=== PATIENT | male | born 1990 | race African-American/Black ===

== ENCOUNTER 2018-11-23 08:53 | Emergency (ER) | payer SELFPAY ==
[~2018-11-23] VITALS: Ht 167.6 cm; Wt 80.7 kg
[2018-11-23 09:10] VITALS: BP 121/69
--- NOTE | 2018-11-23 11:15 | RAD ---
Left hand, 3 views, 11/23/2018: HISTORY: Nail gun injury No fracture or dislocation is identified. No radiopaque foreign body is evident in the soft tissues. IMPRESSION: No significant bony abnormality is detected. Electronically signed by: Michael Robertson MD (11/23/2018 11:13 AM) [facility]
[2018-11-23] MEDS ORDERED: CEPH-264 PO (11:30)
--- NOTE | 2018-11-23 11:31 | PHYS DOC ---
Past Medical History Past Medical History: GERD (AKIRA RITTERJOSE MIGUEL Martinez APRN) Past Surgical History: No Surgical History (AKIRA RITTERJOSE MIGUEL Martinez APRN) Alcohol Use: Occasionally Drug Use: Marijuana (FITO RITTER Michelle BONILLA) Adult General Chief Complaint Chief Complaint: HAND PROBLEM [facility] HPI Patient is a 28 year old male who presents with a puncture wound to his left hand from a nail gun. The patient states that the nail was brand-new and had no contamination of paint or solvent. The patient states that this occurred last night. He states that it did not penetrate for into his hand but when he woke up today he noticed that there was redness around the site. He was worried that it might be getting infected. He states that he is up-to-date on his tetanus boosters. (FITO RITTER IRENE) Review of Systems Review of Systems Constitutional: Denies fever or chills [] Respiratory: Denies cough or shortness of breath [] Cardiovascular: No additional information not addressed in HPI [] GI: Denies abdominal pain, nausea, vomiting, bloody stools or diarrhea [] : Denies dysuria or hematuria [] Musculoskeletal: Denies back pain or joint pain [] Integument: See history of present illness Neurologic: Denies headache, focal weakness or sensory changes [] Endocrine: Denies polyuria or polydipsia [] All other systems were reviewed and found to be within normal limits, except as documented in this note. (FITO RITTER Michelle BONILLA) Allergies Allergies Allergies Coded Allergies Type Severity Reaction Last Updated Verified No Known Drug Allergies 11/23/18 No (KIKO MOORE MD) Physical Exam Physical Exam Constitutional: Well developed, well nourished, no acute distress, non-toxic appearance. [] Cardiovascular:Heart rate regular rhythm, no murmur [] Lungs & Thorax: Bilateral breath sounds clear to auscultation [] Abdomen: Bowel sounds normal, soft, no tenderness, no masses, no pulsatile masses. [] Skin: There is a small puncture wound to the base of the left first digit with a approximately 0.5 cm area of erythema surrounding it, there is no sign of tendon or ligament injury Back: No tenderness, no CVA tenderness. [] Extremities: No tenderness, no cyanosis, no clubbing, ROM intact, no edema. [] Neurologic: Alert and oriented X 3, normal motor function, normal sensory function, no focal deficits noted. [] Psychologic: Affect normal, judgement normal, mood normal. [] (FITO RITTER APRN) Current Patient Data Vital Signs Vital Signs Date Time Temp Pulse Resp B/P (MAP) Pulse Ox O2 Delivery O2 Flow Rate FiO2 11/23/18 09:10 98.2 75 16 121/69 (86) 99 Room Air 98.2 (KIKO MOORE MD) EKG EKG [] (FITO RITTER APRN) Radiology/Procedures Radiology/Procedures [] PATIENT: SONIYA DAY ACCOUNT: [id number] : 1990 LOCATION: ER AGE: 28 SEX: M EXAM STATUS: REG ER ORD. PHYSICIAN: FITO RITTER APRN REASON: nail gun injury PROCEDURE: HAND LEFT 3V Left hand, 3 views, 11/23/2018: HISTORY: Nail gun injury No fracture or dislocation is identified. No radiopaque foreign body is evident in the soft tissues. IMPRESSION: No significant bony abnormality is detected. Electronically signed by: Michael Robertson MD (11/23/2018 11:13 AM) [facility] DICTATED and SIGNED BY: MICHAEL ROBERTSON MD DATE: 11/23/18 1112 (FITO RITTER APRN) Course & Med Decision Making Course & Med Decision Making Pertinent Labs and Imaging studies reviewed. (See chart for details) [] (FITO RITTER APRN) Course & Med Decision Making Staff Physician Addendum: I was working in the ER during the course of this patient's visit. I was available for consultation as needed, but I was not directly involved in the care of this patient. (KIKO MOORE MD) Dragon Disclaimer Dragon Disclaimer This electronic medical record was generated, in whole or in part, using a voice recognition dictation system. (FITO RITTER APRN) Departure Departure Impression: Primary Impression: Puncture wound Disposition: 01 HOME, SELF-CARE Condition: STABLE Referrals: NO PCP (PCP) Patient Instructions: Puncture Wound Additional Instructions: Keep the wound clean and dry. Take the antibiotics as directed. Follow-up with your primary care provider for recheck if not improving in 3 days or return to the emergency department if worsening. Scripts Cephalexin (KEFLEX) 500 Mg Capsule 1 CAP PO TID for puncture wound, #30 CAP Prov: FITO RITTER APRN 11/23/18 FITO RITTER APRN Nov 23, 2018 11:31 KIKO MOORE MD Nov 24, 2018 07:25
== END 2018-11-23 11:39 | disposition home or self-care (01) ==
LOC: ER 08:53
DX: S61.032A Puncture wound without foreign body of left thumb without damage to nail, initial encounter (principal); K21.9 Gastro-esophageal reflux disease without esophagitis; W34.09XA Accidental discharge from other specified firearms, initial encounter; Y93.89 Activity, other specified; Y92.89 Other specified places as the place of occurrence of the external cause; Y99.8 Other external cause status
CPT/HCPCS: 73130; 99283